=== PATIENT | male | born 1960 | race Caucasian/White ===

== ENCOUNTER → 2017-01-22 | Day surgery (SDC) | payer OTHER ==
[~2017-01-22] VITALS: Ht 182.9 cm; Wt 131.5 kg
[~2017-01-22] MED LIST: 0.9% Sodium Chloride 1,000 ML IV SCH; ASPI-973 PO; ATEN100T PO; LISI1TAB11 PO; PRAV40TA PO; Sodium Chloride LOK Flush 10 mL Syringe IV PRN; fentaNYL-PF 50 mCg/mL 2 mL Inj IVPUSH PRN
[2017-01-22 10:38] VITALS: BP 130/89; PULSE 57; O2SAT 95
[2017-01-22 11:23] VITALS: BP 100/69; PULSE 60; RESP 14; O2SAT 94
[2017-01-22 11:34] VITALS: BP 116/73; PULSE 60; RESP 14; O2SAT 93
--- NOTE | 2017-01-22 14:18 | ENDO ---
[address] [address] ENDOSCOPY PROCEDURE PATIENT: PREET DIAZ : 1960 MR#: [id number] ADMIT: 01/22/2017 JOB ID: [id number] DATE OF SERVICE: 01/22/2017 TYPE OF OPERATION: Colonoscopy with biopsy. PREOPERATIVE DIAGNOSIS(ES): Diarrhea. POSTOPERATIVE DIAGNOSIS(ES): 1. Four polyps seen in sigmoid colon removed by cold biopsy forceps, 2. Ascending colon polyp removed by cold biopsy forceps 2 mm. 3. Mild sigmoid diverticulosis. ANESTHESIA: 1. Fentanyl 100 mcg. 1. Versed 5 mg IV administered. COMPLICATIONS: None. BLOOD LOSS: Minimal. DESCRIPTION OF PROCEDURE: After risks and benefits were explained to the patient, informed consent was obtained. After anesthesia administered, colonoscope was inserted from rectum to the terminal ileum and mucosa carefully examined. Prep of the patient was good. After the procedure was done, the scope withdrawn and procedure terminated. FINDINGS: Upon inspection of the anus, no masses, hemorrhoids, ulcers, fissures that were seen throughout the entire examination. There was mild sigmoid diverticulosis. There was also four polyps in the sigmoid colon and one in the ascending colon, each measuring 3 mm in size, removed by cold biopsy forceps. There was also mild sigmoid diverticulosis. Retroflexion was normal. IMPRESSIONS: 1. Mild sigmoid diverticulosis. 2. Five total polyps, each 3 mm in size, removed by cold biopsy forceps. RECOMMENDATIONS: 1. Await pathology results. 2. If three or more tubular adenoma polyps, repeat colonoscopy in three years. 3. If less than three tubular adenoma polyps, repeat colonoscopy in five years.
--- NOTE | 2017-01-27 11:37 | PATH ---
SURGICAL PATHOLOGY Attending Physician:Victor Hugo Fontaine MD CASE STATUS: Signed Out PATIENT NAME: PREET DIAZ PID: [id number] : 1960 DATE COLLECTED:01/22/2017 21:57 SPECIMEN: 1: Ileum, Biopsy 2: Colon, Biopsy 3: Colon, Polyp 4: Colon, Polyp CLINICAL HISTORY: 1). TERMINAL ILEUM BIOPSY 2). RANDOM COLON BIOPSY 3). ASCENDING COLON POLYP 4). SIGMOID POLYPS X4 FINAL DIAGNOSIS: 1. Terminal Ileum, Biopsy: - Small bowel mucosa with no diagnostic abnormality. - No evidence of active inflammation, dysplasia and malignancy. 2. 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 See comment. - No evidence of active, chronic, and microscopic colitis. - Negative for dysplasia and malignancy. 3. Ascending Colon Polyp, Biopsy: -Tubular adenoma in one of two fragments. - One fragment of colonic mucosa with small benign lymphoid aggregate, with no evidence of dysplasia and malignancy. - Positive for Spirochetosis. 4. Sigmoid Polyps x4, Biopsy: - Hyperplastic polyp in two of four fragments. - Two of four fragments of colonic mucosa with no diagnostic abnormality. - Negative for active, chronic and microscopic colitis. - Negative for dysplasia or malignancy. - Additional deeper levels examined. COMMENT: Parts 2, 3) Designated as Random colon and ascending colon polyp, respectively: Sections demonstrate a layer of organisms that carpet the surface of the colonic mucosa, confirmed by special stain. Colonic spirochetosis is an unusual condition in which numerous spirochete bacteria carpet the surface epithelium. It has been associated with abdominal pain, diarrhea, rectal bleeding and immunosuppression. That said, it is often an incidental finding with no clear clinical correlates. The findings were discussed with Dr. Fontaine on 01/27/2017 at 11:00am. As part of routine quality assistant the case was also reviewed by Dr. Rogers and Dr. Parkinson, who agrees with the above interpretation. ICD10: D12.6 GROSS DESCRIPTION: The specimen is received in four formalin filled containers labeled with the patient's name. 1). The specimen is labeled "terminal ileum" and consists of 2 portions of tissue which aggregate to 0.3 x 0.3 x 0.2 CM. The specimen is entirely submitted in cassette 1A. 2). The specimen is labeled "random colon" and consists of multiple portions of tissue which aggregate to 0.5 x 0.4 x 0.2 CM. The specimen is entirely submitted in cassette 2A. 3). The specimen is labeled "ascending polyp" and consists of 2 portions of tissue which aggregate to 0.3 x 0.3 x 0.2 CM. The specimen is entirely submitted in cassette 3A. 4). The specimen is labeled "sigmoid polyp x4" and consists of 4 extremely tiny portions of tissue which aggregate to 0.2 x 0.2 x 0.2 CM. The specimen is entirely submitted in cassette 4A. 01/22/2017DC MICROSCOPIC DESCRIPTION: A special stain ([place]) was performed to evaluate the bacterial organisms and it highlights the surface spirochetes. The control stain shows appropriate reactivity. ICD-9 CODES: CPT CODES: 1: 34535 2: 04829, 41012 3: 57032 4: 86213 Electronically Signed Out Sebas Burgos MD [facility], [place] [address] Technical component performed at [facility], [facility] [address], [place], [address]
== END | disposition home or self-care (01) ==
LOC: END 01:03
PROVIDERS: ATTEND Internal Medicine Gastroenterology
DX: D12.2 Benign neoplasm of ascending colon (principal); K63.5 Polyp of colon; K57.30 Diverticulosis of large intestine without perforation or abscess without bleeding; R19.7 Diarrhea, unspecified; E55.9 Vitamin D deficiency, unspecified; E78.00 Pure hypercholesterolemia, unspecified; I10 Essential (primary) hypertension; K12.30 Oral mucositis (ulcerative), unspecified; A69.8 Other specified spirochetal infections; Z79.82 Long term (current) use of aspirin; Z79.899 Other long term (current) drug therapy
CPT/HCPCS: 45380; G0500; J2250; J3010; J7030